=== PATIENT | male | born 1975 | race Two or more races ===

== ENCOUNTER 2019-05-11 10:45 | Emergency (ER) | payer MEDICARE ==
[~2019-05-11] VITALS: Ht 170.2 cm; Wt 81.6 kg
[2019-05-11] MEDS ORDERED: FAMOTIDINE 20 MG/2 ML VIAL IVP ONE (11:30)
[2019-05-11] MEDS ORDERED: ONDANSETRON PF 4 MG/2 ML VIAL. IV ONE (11:30)
--- NOTE | 2019-05-11 11:53 | RAD ---
2 view abdominal series and portable AP upright chest x-ray Clinical indications: Nonstop hiccups. FINDINGS: Mild fecal retention is seen throughout the colon and rectum. No obstructive bowel pattern is seen. No air-fluid levels are seen. No free intraperitoneal air is evident. There is moderate food retention within the stomach. Chest x-ray demonstrates no acute lung infiltrate or pleural effusion or pulmonary edema or pneumothorax or lung mass. The heart size and pulmonary vasculature and mediastinum and both tunde are unremarkable. IMPRESSION: Moderate food retention within the stomach. No other acute abnormality is evident. Electronically signed by: Berto Tripp MD (05/11/2019 11:50 AM) [id number]
[2019-05-11 12:00] LABS: BASO % 1 % (0-3); EOS # 0.1 x10^3/uL (0.0-0.7); EOS % 2 % (0-3); HEMATOCRIT 45.1 % (39.0-53.0); HEMOGLOBIN 15.3 g/dL (13.0-17.5); LYMPH # 1.5 x10^3/uL (1.0-4.8); LYMPH % 23 % (24-48); MEAN CORPUSCULAR HEMOGLOBIN 28 pg (25-35); MEAN CORPUSCULAR HGB CONC 34 g/dL (31-37); MEAN CORPUSCULAR VOLUME 84 fL (79-100); MONO # 0.6 x10^3/uL (0.0-1.1); MONO % 10 % (0-9); NEUT # 4.4 x10^3/uL (1.8-7.7); NEUT % 65 % (31-73); PLATELET COUNT 215 x10^3/uL (140-400); RED BLOOD COUNT 5.38 x10^6/uL (4.30-5.70); RED CELL DISTRIBUTION WIDTH 14.7 % (11.5-14.5); WHITE BLOOD COUNT 6.8 x10^3/uL (4.0-11.0)
[2019-05-11 12:09] LABS: BILIRUBIN,URINE NEGATIVE (NEG); CLARITY,URINE TURBID; COLOR,URINE YELLOW; NITRITE,URINE NEGATIVE (NEG); PH,URINE 7.5; PROTEIN,URINE NEGATIVE (NEG-TRACE)
[2019-05-11 12:12] LABS: CALCIUM 9.4 mg/dL (8.5-10.1); GFR 81.6; POTASSIUM 3.9 mmol/L (3.5-5.1)
[2019-05-11 12:16] LABS: BARBITURATES NEG (NEG); BENZODIAZEPINES NEG (NEG); CANNABINOIDS NEG (NEG); COCAINE NEG (NEG); METHADONE NEG (NEG); OPIATES NEG (NEG); PHENCYCLIDINE NEG (NEG)
[2019-05-11 12:17] LABS: AMORPHOUS SEDIMENT,UR PRESENT /HPF; BACTERIA,URINE 0 /HPF (0-FEW); RBC,URINE 0 /HPF (0-2); WBC,URINE 0 /HPF (0-4)
[2019-05-11 12:18] LABS: ALBUMIN 3.6 g/dL (3.4-5.0); ALBUMIN/GLOBULIN RATIO 1.1 (1.0-1.7); MAGNESIUM 1.8 mg/dL (1.8-2.4); TOTAL BILIRUBIN 0.6 mg/dL (0.2-1.0); TOTAL PROTEIN 6.8 g/dL (6.4-8.2)
[2019-05-11 12:25] LABS: AMPHETAMINE/METHAMPHETAMINE NEG (NEG)
[2019-05-11 12:27] LABS: CREATINE KINASE 68 U/L (39-308)
--- NOTE | 2019-05-11 12:40 | EKG ---
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
[2019-05-11] MEDS ORDERED: CONTRAST GIVEN. MC PRN (12:45)
[2019-05-11] MEDS ORDERED: IOHEXOL 300 MG/ML 100ML VIAL. IV ONE (12:45)
--- NOTE | 2019-05-11 13:15 | RAD ---
Examination: CT ABD PELV W/ IV CONTRST ONLY History: Epigastric pain, vomiting, hiccups Comparison/Correlation: None Findings: Axial images of the abdomen and pelvis were obtained following IV contrast. Sagittal and coronal reformatted images were provided. Motion limits evaluation of the upper abdomen. Visualized lung bases are clear. Circumferential wall thickening of the distal esophagus is noted with suggestion of a small hiatal hernia. Liver is unremarkable. Large quantity of debris is noted within the stomach. Gallbladder is unremarkable. Spleen is unremarkable. Adrenal glands are normal. Kidneys unremarkable. No upper abdominal fluid collections. No inflammatory findings. Appendix is normal. Moderate quantity of stool involving the colon. No bowel obstruction or extraluminal gas. No ascites or pelvic free fluid. Urinary bladder is unremarkable. Vacuum disc space phenomenon involving the lumbar spine noted. Impression: No acute inflammatory process. No obstruction. Small sliding hiatal hernia suspected. Circumferential wall thickening of the distal esophagus which may represent esophagitis is noted. PQRS Compliance Statement: One or more of the following individualized dose reduction techniques were utilized for this examination: 1. Automated exposure control 2. Adjustment of the mA and/or kV according to patient size 3. Use of iterative reconstruction technique Electronically signed by: Reynaldo Holt MD (05/11/2019 1:12 PM) [facility]
[2019-05-11 14:00] VITALS: BP 115/69
[2019-05-11] MEDS ORDERED: OMEP20TA8 PO (14:19)
[2019-05-11] MEDS ORDERED: GABA600T7 PO (14:19)
[2019-05-11] MEDS ORDERED: METO10TA81 PO (14:19)
--- NOTE | 2019-05-11 14:19 | PHYS DOC ---
Past Medical History Past Medical History: GERD, Other Additional Past Medical Histor: CLEFT PALATE, CLUB FOOT Past Surgical History: Other Additional Past Surgical Histo: CLEFT PALATE Alcohol Use: None Drug Use: None Adult General Chief Complaint Chief Complaint: HICCUPS/SINGULTUS HPI HPI Patient is a 43 year old male with no significant medical history who presents to the ED today complaining of hiccups intermittently since Friday which is 6 days ago. Patient states the hiccups are relieved when he drinks Sprite or shai cherelle and eats corn muffins. He states occasionally brings up spit. He states occasionally he gets slight pain on the epigastric region which is worse after he eats certain foods or he is laying down. He states some of the symptoms are relieved sitting up. Review of Systems Review of Systems Constitutional: Denies fever or chills [] Eyes: Denies change in visual acuity, redness, or eye pain [] HENT: Denies nasal congestion or sore throat [] Respiratory: Denies cough or shortness of breath [] Cardiovascular: No additional information not addressed in HPI [] GI: Reports hiccups, epigastric pain, denies bloody stools or diarrhea [] : Denies dysuria or hematuria [] Musculoskeletal: Denies back pain or joint pain [] Integument: Denies rash or skin lesions [] Neurologic: Denies headache, focal weakness or sensory changes [] All other systems were reviewed and found to be within normal limits, except as documented in this note. Current Medications Current Medications Current Medications Medications (Trade) Dose Ordered Sig/Slava Start Time Stop Time Status Last Admin Dose Admin Famotidine (Pepcid Vial) 20 mg 1X ONCE 05/11/19 11:30 05/11/19 11:45 DC 05/11/19 12:03 20 MG Info (CONTRAST GIVEN -- Rx MONITORING) 1 each PRN DAILY PRN 05/11/19 12:45 05/13/19 12:44 Iohexol (Omnipaque 300 Mg/ml) 75 ml 1X ONCE 05/11/19 12:45 05/11/19 12:46 DC 05/11/19 12:51 75 ML Magnesium Citrate (Citroma) 296 ml 1X ONCE 05/11/19 14:15 05/11/19 14:16 UNV Metoclopramide HCl (Reglan Vial) 10 mg 1X ONCE 05/11/19 14:15 05/11/19 14:16 UNV Ondansetron HCl (Zofran) 4 mg 1X ONCE 05/11/19 11:30 05/11/19 11:45 DC 05/11/19 12:03 4 MG Allergies Allergies Allergies Coded Allergies Type Severity Reaction Last Updated Verified No Known Drug Allergies 05/11/19 No Physical Exam Physical Exam Constitutional: Well developed, well nourished, no acute distress, non-toxic bravo earance. [] HENT: Normocephalic, atraumatic, bilateral external ears normal, oropharynx moist, no oral exudates, nose normal. [] Eyes: PERRLA, EOMI, conjunctiva normal, no discharge. [] Neck: Normal range of motion, no tenderness, supple, no stridor. [] Cardiovascular:Heart rate regular rhythm, no murmur [] Lungs & Thorax: Bilateral breath sounds clear to auscultation [] Abdomen: No hiccups noted in the ED. Bowel sounds normal, soft, no tenderness, no masses, no pulsatile masses. [] Skin: Warm, dry, no erythema, no rash. [] Back: No tenderness, no CVA tenderness. [] Extremities: No tenderness, no cyanosis, no clubbing, ROM intact, no edema. [] Neurologic: Alert and oriented X 3, normal motor function, normal sensory function, no focal deficits noted. [] Psychologic: Affect normal, judgement normal, mood normal. [] Current Patient Data Vital Signs Vital Signs Date Time Temp Pulse Resp B/P (MAP) Pulse Ox O2 Delivery O2 Flow Rate FiO2 05/11/19 11:12 98.2 61 16 115/76 (89) 97 Room Air 98.2 Lab Values Laboratory Tests Test 05/11/19 11:45 05/11/19 12:01 White Blood Count 6.8 x10^3/uL (4.0-11.0) Red Blood Count 5.38 x10^6/uL (4.30-5.70) Hemoglobin 15.3 g/dL (13.0-17.5) Hematocrit 45.1 % (39.0-53.0) Mean Corpuscular Volume 84 fL (79-100) Mean Corpuscular Hemoglobin 28 pg (25-35) Mean Corpuscular Hemoglobin Concent 34 g/dL (31-37) Red Cell Distribution Width 14.7 % (11.5-14.5) H Platelet Count 215 x10^3/uL (140-400) Neutrophils (%) (Auto) 65 % (31-73) Lymphocytes (%) (Auto) 23 % (24-48) L Monocytes (%) (Auto) 10 % (0-9) H Eosinophils (%) (Auto) 2 % (0-3) Basophils (%) (Auto) 1 % (0-3) Neutrophils # (Auto) 4.4 x10^3/uL (1.8-7.7) Lymphocytes # (Auto) 1.5 x10^3/uL (1.0-4.8) Monocytes # (Auto) 0.6 x10^3/uL (0.0-1.1) Eosinophils # (Auto) 0.1 x10^3/uL (0.0-0.7) Basophils # (Auto) 0.0 x10^3/uL (0.0-0.2) Sodium Level 143 mmol/L (136-145) Potassium Level 3.9 mmol/L (3.5-5.1) Chloride Level 105 mmol/L (98-107) Carbon Dioxide Level 30 mmol/L (21-32) Anion Gap 8 (6-14) Blood Urea Nitrogen 17 mg/dL (8-26) Creatinine 1.0 mg/dL (0.7-1.3) Estimated GFR (Cockcroft-Gault) 81.6 BUN/Creatinine Ratio 17 (6-20) Glucose Level 97 mg/dL (70-99) Calcium Level 9.4 mg/dL (8.5-10.1) Magnesium Level 1.8 mg/dL (1.8-2.4) Total Bilirubin 0.6 mg/dL (0.2-1.0) Aspartate Amino Transferase (AST) 16 U/L (15-37) Alanine Aminotransferase (ALT) 29 U/L (16-63) Alkaline Phosphatase 79 U/L (46-116) Creatine Kinase 68 U/L (39-308) Creatine Kinase MB (Mass) 0.9 ng/mL (0.0-3.6) Creatine Kinase MB Relative Index % (0-4) Troponin I Quantitative < 0.017 ng/mL (0.000-0.055) XA-Nps-V-Type Natriuretic Peptide 26 pg/mL (0-124) Total Protein 6.8 g/dL (6.4-8.2) Albumin 3.6 g/dL (3.4-5.0) Albumin/Globulin Ratio 1.1 (1.0-1.7) Lipase 198 U/L (73-393) Urine Collection Type Unknown Urine Color Yellow Urine Clarity Turbid Urine pH 7.5 Urine Specific [place] 1.020 Urine Protein Negative mg/dL (NEG-TRACE) Urine Glucose (UA) Negative mg/dL (NEG) Urine Ketones (Stick) Negative mg/dL (NEG) Urine Blood Negative (NEG) Urine Nitrite Negative (NEG) Urine Bilirubin Negative (NEG) Urine Urobilinogen Dipstick 1.0 mg/dL (0.2 mg/dL) Urine Leukocyte Esterase Negative (NEG) Urine RBC 0 /HPF (0-2) Urine WBC 0 /HPF (0-4) Urine Amorphous Sediment Present /HPF Urine Bacteria 0 /HPF (0-FEW) Urine Mucus Marked /LPF Urine Opiates Screen Neg (NEG) Urine Methadone Screen Neg (NEG) Urine Barbiturates Neg (NEG) Urine Phencyclidine Screen Neg (NEG) Urine Amphetamine/Methamphetamine Neg (NEG) Urine Benzodiazepines Screen Neg (NEG) Urine Cocaine Screen Neg (NEG) Urine Cannabinoids Screen Neg (NEG) Urine Ethyl Alcohol Neg (NEG) Laboratory Tests 05/11/19 11:45 Laboratory Tests 05/11/19 11:45 EKG EKG [address] Ferrari sinus rhythm HR 60 no STEMI[] Radiology/Procedures Radiology/Procedures []PROCEDURE: ACUTE ABDOMEN SERIES 2 view abdominal series and portable AP upright chest x-ray Clinical indications: Nonstop hiccups. FINDINGS: Mild fecal retention is seen throughout the colon and rectum. No obstructive bowel pattern is seen. No air-fluid levels are seen. No free intraperitoneal air is evident. There is moderate food retention within the stomach. Chest x-ray demonstrates no acute lung infiltrate or pleural effusion or pulmonary edema or pneumothorax or lung mass. The heart size and pulmonary vasculature and mediastinum and both tunde are unremarkable. IMPRESSION: Moderate food retention within the stomach. No other acute abnormality is evident. Electronically signed by: Rosendo Tripp MD (05/11/2019 11:50 AM) [id number] DICTATED and SIGNED BY: ROSENDO TRIPP MD DATE: 05/11/19 1150 PROCEDURE: CT ABD PELV W/ IV CONTRST ONLY Examination: CT ABD PELV W/ IV CONTRST ONLY History: Epigastric pain, vomiting, hiccups Comparison/Correlation: None Findings: Axial images of the abdomen and pelvis were obtained following IV contrast. Sagittal and coronal reformatted images were provided. Motion limits evaluation of the upper abdomen. Visualized lung bases are clear. Circumferential wall thickening of the distal esophagus is noted with suggestion of a small hiatal hernia. Liver is unremarkable. Large quantity of debris is noted within the stomach. Gallbladder is unremarkable. Spleen is unremarkable. Adrenal glands are normal. Kidneys unremarkable. No upper abdominal fluid collections. No inflammatory findings. Appendix is normal. Moderate quantity of stool involving the colon. No bowel obstruction or extraluminal gas. No ascites or pelvic free fluid. Urinary bladder is unremarkable. Vacuum disc space phenomenon involving the lumbar spine noted. Impression: No acute inflammatory process. No obstruction. Small sliding hiatal hernia suspected. Circumferential wall thickening of the distal esophagus which may represent esophagitis is noted. PQRS Compliance Statement: One or more of the following individualized dose reduction techniques were utilized for this examination: 1. Automated exposure control 2. Adjustment of the mA and/or kV according to patient size 3. Use of iterative reconstruction technique Electronically signed by: Reynaldo Sanchez MD (05/11/2019 1:12 PM) [facility] DICTATED and SIGNED BY: REYNALDO SANCHEZ MD DATE: 05/11/19 1312 Course & Med Decision Making Course & Med Decision Making Pertinent Labs and Imaging studies reviewed. (See chart for details) This is a 43-year-old male patient who presents to the ED today complaining of hiccups with slight epigastric abdominal pain and spitting for 6 days intermittently. Patient's CBC, CMP, lipase, UA, drug screen, troponin and EKG are negative. Acute abdominal series was done which was noted for moderate amount of food in patient's abdomen. CT of the abdomen and pelvis was noted for esophagitis and constipation. Patient was given famotidine in the ED Zofran and Reglan. Patient's hiccups appear to be triggered by acid reflex. He started having hiccups in the ED, I offered him admission he refused. Patient was discharged on a proton pump inhibitor, discharged with Reglan and gabapentin. Follow-up with GI in the course of this week. We talked about acid reflex management remedies specifically diet and proton pump inhibitors. Dragon Disclaimer Dragon Disclaimer This electronic medical record was generated, in whole or in part, using a voice recognition dictation system. Departure Departure Impression: Primary Impression: Esophagitis, acute Disposition: 01 HOME, SELF-CARE Condition: STABLE Referrals: UNKNOWN PCP NAME (PCP) FRANCISCA STEVENS MD follow up as soon as you can Patient Instructions: Diet for Gastroesophageal Reflux Disease, Adult Additional Instructions: You were evaluated in the emergency room and noted to have hiccups triggered by acid reflex, you are also constipated. We put you on medications, take them as prescribed. Avoid eating greasy, fatty, acidic foods, avoid heating heavy meals. Take the prescribed medications as ordered. Follow up with the GI doctor calixto aaron as soon as you can. Scripts Gabapentin (GABAPENTIN) 600 Mg Tablet 600 MG PO TID for NEUROGENIC PAIN, #30 TAB Prov: ALMA SHINE APRN 05/11/19 Metoclopramide Hcl (REGLAN) 10 Mg Tablet 1 TAB PO TID PRN for NAUSEA, #30 TAB Prov: ALMA SHINE APRN 05/11/19 Omeprazole (OMEPRAZOLE) 20 Mg Tablet. 1 TAB PO DAILY, #30 TAB 0 Refills Prov: ALMA SHINE APRN 05/11/19 ALMA SHINE APRN May 11, 2019 14:19
[2019-05-11] MEDS ORDERED: METOCLOPRAMIDE HCL 10 MG/2 ML VIAL. IV ONE (14:30)
[2019-05-11] MEDS ORDERED: MAGNESIUM CITRATE 296 ML SOLUTION. PO ONE (14:30)
== END 2019-05-11 14:46 | disposition home or self-care (01) ==
LOC: ER 10:45
DX: K20.9 Esophagitis, unspecified (principal)
CPT/HCPCS: 99285; J2405; J2765; J3490; Q9967; 36415; 74022; 74177; 80053; 80307; 81001; 82553; 83690; 83735; 83880; 84484; 85025; 93005; 96374; 96375

== ENCOUNTER 2019-05-11 17:52 | Inpatient (IN) | payer MEDICARE, MEDICAID ==
[~2019-05-11] VITALS: Ht 170.2 cm; Wt 83.9 kg
[~2019-05-11 17:52] MED LIST: GABA600T7 PO; METO10TA81 PO; OMEP20TA8 PO
--- NOTE | 2019-05-11 18:19 | PHYS DOC ---
Past Medical History Past Medical History: GERD, Other Additional Past Medical Histor: CLEFT PALATE, CLUB FOOT Past Surgical History: Other Additional Past Surgical Histo: CLEFT PALATE, ear surgery, bilateral feet surgery Alcohol Use: None Drug Use: None Adult General Chief Complaint Chief Complaint: HICCUPS/SINGULTUS HPI HPI Patient is a 43 year old male with no significant PMHX presents to the ED complaining of hiccups since Friday. States that it has been approximately 6 days. States that he feels better when he drinks sprite and shai cherelle. The patient was seen in the ED earlier today and diagnosed with esophagitis. Admission was recommended but patient refused. States that he gets pain in his epigastric region. Describes the pain as sharp. Rates the pain as 6 out 10. States he had to return to the ED today because the hiccups came back and they are worse then before. Denies chest pain, shortness of breath, lower legs swelling, chills, fever, cough, nausea/vomiting or dizziness. Review of Systems Review of Systems Constitutional: Denies fever or chills [] Eyes: Denies change in visual acuity, redness, or eye pain [] HENT: Denies nasal congestion or sore throat [] Respiratory: Denies cough or shortness of breath [] Cardiovascular: No additional information not addressed in HPI [] GI: Complains of abdominal pain. Denies nausea, vomiting, bloody stools or diarrhea [] : Denies dysuria or hematuria [] Musculoskeletal: Denies back pain or joint pain [] Integument: Denies rash or skin lesions [] Neurologic: Denies headache, focal weakness or sensory changes [] All other systems were reviewed and found to be within normal limits, except as documented in this note. Current Medications Current Medications Current Medications Medications (Trade) Dose Ordered Sig/Slava Start Time Stop Time Status Last Admin Dose Admin Chlorpromazine HCl 25 mg/Dextrose 50 ml @ 100 mls/hr PRN Q6HRS PRN 05/11/19 18:30 05/11/19 19:07 100 MLS/HR Allergies Allergies Allergies Coded Allergies Type Severity Reaction Last Updated Verified No Known Drug Allergies 05/11/19 No Physical Exam Physical Exam Constitutional: Well developed, well nourished, no acute distress, non-toxic appearance. [] HENT: Normocephalic, atraumatic Eyes: PERRLA, EOMI, conjunctiva normal, no discharge. [] Neck: Normal range of motion, no tenderness, supple, no stridor. [] Cardiovascular:Heart rate regular rhythm, no murmur [] Lungs & Thorax: Bilateral breath sounds clear to auscultation [] Abdomen: Bowel sounds normal, soft, mild epigastric abdominal tenderness, no masses, no pulsatile masses. [] Skin: Warm, dry, no erythema, no rash. [] Back: No tenderness, no CVA tenderness. [] Extremities: No tenderness, no cyanosis, no clubbing, ROM intact, no edema. [] Neurologic: Alert and oriented X 3, normal motor function, normal sensory function, no focal deficits noted. [] Psychologic: Affect normal, judgement normal, mood normal. [] Current Patient Data Vital Signs Vital Signs Date Time Temp Pulse Resp B/P (MAP) Pulse Ox O2 Delivery O2 Flow Rate FiO2 05/11/19 18:07 98.1 77 20 158/66 (96) 99 Room Air 98.1 Lab Values Laboratory Tests Test 05/11/19 18:30 White Blood Count 7.2 x10^3/uL (4.0-11.0) Red Blood Count 5.53 x10^6/uL (4.30-5.70) Hemoglobin 15.6 g/dL (13.0-17.5) Hematocrit 45.4 % (39.0-53.0) Mean Corpuscular Volume 82 fL (79-100) Mean Corpuscular Hemoglobin 28 pg (25-35) Mean Corpuscular Hemoglobin Concent 34 g/dL (31-37) Red Cell Distribution Width 14.7 % (11.5-14.5) H Platelet Count 214 x10^3/uL (140-400) Neutrophils (%) (Auto) 60 % (31-73) Lymphocytes (%) (Auto) 29 % (24-48) Monocytes (%) (Auto) 9 % (0-9) Eosinophils (%) (Auto) 2 % (0-3) Basophils (%) (Auto) 1 % (0-3) Neutrophils # (Auto) 4.3 x10^3/uL (1.8-7.7) Lymphocytes # (Auto) 2.1 x10^3/uL (1.0-4.8) Monocytes # (Auto) 0.7 x10^3/uL (0.0-1.1) Eosinophils # (Auto) 0.1 x10^3/uL (0.0-0.7) Basophils # (Auto) 0.0 x10^3/uL (0.0-0.2) Sodium Level 143 mmol/L (136-145) Potassium Level 3.6 mmol/L (3.5-5.1) Chloride Level 107 mmol/L (98-107) Carbon Dioxide Level 25 mmol/L (21-32) Anion Gap 11 (6-14) Blood Urea Nitrogen 17 mg/dL (8-26) Creatinine 1.1 mg/dL (0.7-1.3) Estimated GFR (Cockcroft-Gault) 73.1 BUN/Creatinine Ratio 15 (6-20) Glucose Level 150 mg/dL (70-99) H Calcium Level 9.4 mg/dL (8.5-10.1) Total Bilirubin 0.4 mg/dL (0.2-1.0) Aspartate Amino Transferase (AST) 22 U/L (15-37) Alanine Aminotransferase (ALT) 33 U/L (16-63) Alkaline Phosphatase 84 U/L (46-116) Total Protein 7.1 g/dL (6.4-8.2) Albumin 3.6 g/dL (3.4-5.0) Albumin/Globulin Ratio 1.0 (1.0-1.7) Laboratory Tests 05/11/19 18:30 Laboratory Tests 05/11/19 18:30 EKG EKG EKG is sinus rhythm at 96 BPM. No STEMI or long QT.[] Radiology/Procedures Radiology/Procedures [] Course & Med Decision Making Course & Med Decision Making Pertinent Labs and Imaging studies reviewed. (See chart for details) []Improved with Thorazine given in ED. No long QT. Will admit for Esophagitis and GI consult due to persistence of symptoms. Discussed case with hospitalist, Dr. Dahl. He agrees to admission and further management of patient. Patient stable for admission. Dragon Disclaimer Dragon Disclaimer This electronic medical record was generated, in whole or in part, using a voice recognition dictation system. Departure Departure Impression: Primary Impression: Esophagitis, acute Additional Impression: Hiccups Disposition: ADMITTED INPATIENT Admitting Physician: OLE Condition: STABLE Referrals: UNKNOWN PCP NAME (PCP) Problem Qualifiers TIRSO KING May 11, 2019 18:18
[2019-05-11 18:42] LABS: BASO % 1 % (0-3); EOS # 0.1 x10^3/uL (0.0-0.7); EOS % 2 % (0-3); HEMATOCRIT 45.4 % (39.0-53.0); HEMOGLOBIN 15.6 g/dL (13.0-17.5); LYMPH # 2.1 x10^3/uL (1.0-4.8); LYMPH % 29 % (24-48); MEAN CORPUSCULAR HEMOGLOBIN 28 pg (25-35); MEAN CORPUSCULAR HGB CONC 34 g/dL (31-37); MEAN CORPUSCULAR VOLUME 82 fL (79-100); MONO # 0.7 x10^3/uL (0.0-1.1); MONO % 9 % (0-9); NEUT # 4.3 x10^3/uL (1.8-7.7); NEUT % 60 % (31-73); PLATELET COUNT 214 x10^3/uL (140-400); RED BLOOD COUNT 5.53 x10^6/uL (4.30-5.70); RED CELL DISTRIBUTION WIDTH 14.7 % (11.5-14.5); WHITE BLOOD COUNT 7.2 x10^3/uL (4.0-11.0)
[2019-05-11 18:52] LABS: CALCIUM 9.4 mg/dL (8.5-10.1); CREATININE 1.1 mg/dL (0.7-1.3); GFR 73.1; POTASSIUM 3.6 mmol/L (3.5-5.1)
[2019-05-11 18:57] LABS: ALBUMIN 3.6 g/dL (3.4-5.0); TOTAL BILIRUBIN 0.4 mg/dL (0.2-1.0); TOTAL PROTEIN 7.1 g/dL (6.4-8.2)
[2019-05-11] MEDS: chlorproMAZINE 25 MG in IV DEXTROSE 5% 50 ML IV PRN (19:07)
[2019-05-11] MEDS ORDERED: PANTOPRAZOLE IV PUSH 40 MG VIAL. IVP ONE (19:15)
[2019-05-11] MEDS ORDERED: MORPHINE SULFATE 2 MG/ML VIAL. IV PRN (19:15)
[2019-05-11] MEDS ORDERED: IV NORMAL SALINE 1000ML BAG 1,000 ML IV ONE (20:00)
[2019-05-11 23:00] VITALS: BP 89/55
[2019-05-12 03:00] VITALS: BP 101/48
[2019-05-12 04:53] LABS: BASO % 1 % (0-3); EOS # 0.2 x10^3/uL (0.0-0.7); EOS % 3 % (0-3); HEMATOCRIT 43.1 % (39.0-53.0); HEMOGLOBIN 14.6 g/dL (13.0-17.5); LYMPH # 2.4 x10^3/uL (1.0-4.8); LYMPH % 39 % (24-48); MEAN CORPUSCULAR HEMOGLOBIN 28 pg (25-35); MEAN CORPUSCULAR HGB CONC 34 g/dL (31-37); MEAN CORPUSCULAR VOLUME 84 fL (79-100); MONO # 0.6 x10^3/uL (0.0-1.1); MONO % 10 % (0-9); NEUT # 2.8 x10^3/uL (1.8-7.7); NEUT % 47 % (31-73); PLATELET COUNT 187 x10^3/uL (140-400); RED BLOOD COUNT 5.14 x10^6/uL (4.30-5.70); RED CELL DISTRIBUTION WIDTH 14.8 % (11.5-14.5)
[2019-05-12 05:31] LABS: ALBUMIN 3.2 g/dL (3.4-5.0); CALCIUM 8.7 mg/dL (8.5-10.1); CREATININE 1.1 mg/dL (0.7-1.3); GFR 73.1; POTASSIUM 3.8 mmol/L (3.5-5.1); TOTAL BILIRUBIN 0.9 mg/dL (0.2-1.0); TOTAL PROTEIN 6.4 g/dL (6.4-8.2)
--- NOTE | 2019-05-12 06:08 | EKG ---
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
[2019-05-12 07:00] VITALS: BP 108/56
[2019-05-12] MEDS: chlorproMAZINE 25 MG in IV DEXTROSE 5% 50 ML IV PRN (08:22)
--- NOTE | 2019-05-12 09:03 | PDOC2 ---
GI CONSULT Reason For Consult: Hiccups, esophagitis HPI: HPI: 43 y/o male to ER twice yesterday - agreed to admission second time. Hiccups x 1 week - no precipitating events. Has vomiting twice - once on Friday ("brown slime") and once just now (I saw - clear phlegm material w/ light brown/reddish tinge). Was able to eat/drink some in between. Laila Marie helped hiccups once at home and Thorazine helped last night in ER - was able to sleep, then hiccups recurred after he woke up and talked to his this morning. Has had some LLQ discomfort - none currently. Stools looked black on Friday and Friday but are now normal in color. Has had heartburn "like fire" - worse than in the past. Tried Tums. No dysphagia, hematochezia, diarrhea, constipation, or weight loss. No previous EGD or colonoscopy. No GB, liver, pancreas, or PUD history. No NSAIDs. On x-ray: moderate food retention in stomach. On CT: possible distal esophagitis, hiatal hernia, large amount of debris in stomach, moderate retained stool, and normal liver and GB. PMH: PMH: cleft palate repair, bilateral foot surgeries, ear surgery FH: Family History: Cancer (father - lung) Social History: Smoke: No ALCOHOL: none Drugs: None ROS: GEN: Denies fevers, chills, sweats HEENT: Denies blurred vision, sore throat CV: Denies chest pain RESP: Denies shortness of air, cough GI: Per HPI : Denies hematuria, dysuria ENDO: Denies weight changes NEURO: Denies confusion, dizziness MSK: Denies weakness, joint pain/swelling SKIN: Denies jaundice, pruritus Vitals: Vitals: Vital Signs Date Time Temp Pulse Resp B/P (MAP) Pulse Ox O2 Delivery O2 Flow Rate FiO2 05/12/19 07:00 98.4 60 18 108/56 (73) 96 Room Air 98.4 Labs: Labs: Laboratory Tests Test 05/11/19 18:30 05/12/19 04:20 White Blood Count 7.2 x10^3/uL (4.0-11.0) 6.0 x10^3/uL (4.0-11.0) Red Blood Count 5.53 x10^6/uL (4.30-5.70) 5.14 x10^6/uL (4.30-5.70) Hemoglobin 15.6 g/dL (13.0-17.5) 14.6 g/dL (13.0-17.5) Hematocrit 45.4 % (39.0-53.0) 43.1 % (39.0-53.0) Mean Corpuscular Volume 82 fL (79-100) 84 fL (79-100) Mean Corpuscular Hemoglobin 28 pg (25-35) 28 pg (25-35) Mean Corpuscular Hemoglobin Concent 34 g/dL (31-37) 34 g/dL (31-37) Red Cell Distribution Width 14.7 % (11.5-14.5) 14.8 % (11.5-14.5) Platelet Count 214 x10^3/uL (140-400) 187 x10^3/uL (140-400) Neutrophils (%) (Auto) 60 % (31-73) 47 % (31-73) Lymphocytes (%) (Auto) 29 % (24-48) 39 % (24-48) Monocytes (%) (Auto) 9 % (0-9) 10 % (0-9) Eosinophils (%) (Auto) 2 % (0-3) 3 % (0-3) Basophils (%) (Auto) 1 % (0-3) 1 % (0-3) Neutrophils # (Auto) 4.3 x10^3/uL (1.8-7.7) 2.8 x10^3/uL (1.8-7.7) Lymphocytes # (Auto) 2.1 x10^3/uL (1.0-4.8) 2.4 x10^3/uL (1.0-4.8) Monocytes # (Auto) 0.7 x10^3/uL (0.0-1.1) 0.6 x10^3/uL (0.0-1.1) Eosinophils # (Auto) 0.1 x10^3/uL (0.0-0.7) 0.2 x10^3/uL (0.0-0.7) Basophils # (Auto) 0.0 x10^3/uL (0.0-0.2) 0.0 x10^3/uL (0.0-0.2) Sodium Level 143 mmol/L (136-145) 145 mmol/L (136-145) Potassium Level 3.6 mmol/L (3.5-5.1) 3.8 mmol/L (3.5-5.1) Chloride Level 107 mmol/L (98-107) 109 mmol/L (98-107) Carbon Dioxide Level 25 mmol/L (21-32) 30 mmol/L (21-32) Anion Gap 11 (6-14) 6 (6-14) Blood Urea Nitrogen 17 mg/dL (8-26) 15 mg/dL (8-26) Creatinine 1.1 mg/dL (0.7-1.3) 1.1 mg/dL (0.7-1.3) Estimated GFR (Cockcroft-Gault) 73.1 73.1 BUN/Creatinine Ratio 15 (6-20) 14 (6-20) Glucose Level 150 mg/dL (70-99) 92 mg/dL (70-99) Calcium Level 9.4 mg/dL (8.5-10.1) 8.7 mg/dL (8.5-10.1) Total Bilirubin 0.4 mg/dL (0.2-1.0) 0.9 mg/dL (0.2-1.0) Aspartate Amino Transf (AST/SGOT) 22 U/L (15-37) 15 U/L (15-37) Alanine Aminotransferase (ALT/SGPT) 33 U/L (16-63) 27 U/L (16-63) Alkaline Phosphatase 84 U/L (46-116) 72 U/L (46-116) Total Protein 7.1 g/dL (6.4-8.2) 6.4 g/dL (6.4-8.2) Albumin 3.6 g/dL (3.4-5.0) 3.2 g/dL (3.4-5.0) Albumin/Globulin Ratio 1.0 (1.0-1.7) 1.0 (1.0-1.7) Allergies: Coded Allergies: No Known Drug Allergies (Unverified , 05/11/19) Medications: Current Medications Medications (Trade) Dose Ordered Sig/Slava Route PRN Reason Start Time Stop Time Status Last Admin Dose Admin Chlorpromazine HCl 25 mg/Dextrose 50 ml @ 100 mls/hr PRN Q6HRS PRN IV HICCUPS 05/11/19 18:30 05/12/19 08:22 Pantoprazole Sodium (PROTONIX VIAL for IV PUSH) 40 mg 1X ONCE IVP 05/11/19 19:15 05/11/19 19:16 DC 05/11/19 19:43 Sodium Chloride 1,000 ml @ 1,000 mls/hr 1X ONCE IV 05/11/19 20:00 05/11/19 20:59 DC 05/11/19 19:54 Imaging: Imaging: AAS 05/11 IMPRESSION: Moderate food retention within the stomach. No other acute abnormality is evident. CT A/P 05/11 Visualized lung bases are clear. Circumferential wall thickening of the distal esophagus is noted with suggestion of a small hiatal hernia. Liver is unremarkable. Large quantity of debris is noted within the stomach. Gallbladder is unremarkable. Spleen is unremarkable. Adrenal glands are normal. Kidneys unremarkable. No upper abdominal fluid collections. No inflammatory findings. Appendix is normal. Moderate quantity of stool involving the colon. No bowel obstruction or extraluminal gas. No ascites or pelvic free fluid. Urinary bladder is unremarkable. Vacuum disc space phenomenon involving the lumbar spine noted. Impression: No acute inflammatory process. No obstruction. Small sliding hiatal hernia suspected. Circumferential wall thickening of the distal esophagus which may represent esophagitis is noted. PE: GEN: hiccuping HEENT: Atraumatic, PERRL LUNGS: room air, clear anteriorly HEART: RRR ABD: NABS, S/ND/NT EXTREMITY: No edema SKIN: No rashes, no jaundice NEURO/PSYCH: A & O �3 A/P: A/P: Hiccups, vomiting Heartburn Abnormal abdominal imaging - debris in stomach, esophagitis, moderate amount of stool CRC screen - average risk -- Continue PPI for heartburn. Would benefit from EGD at some point - will review timing (inpt vs outpt) w/ Dr. Swanson and additional GI recs. SALVATORE CHIU May 12, 2019 09:03
[2019-05-12] MEDS: PANTOPRAZOLE IV PUSH 40 MG VIAL. IVP SCH (10:29)
[2019-05-12 10:54] VITALS: BP 121/61
--- NOTE | 2019-05-12 13:30 | SSS ---
ADMIT DATE: CHIEF COMPLAINT: Hiccups. HISTORY OF PRESENT ILLNESS: The patient is a pleasant 43-year-old relatively healthy male who presented with hiccups. I think he came to the ER twice yesterday, they went ahead and admitted him and now I am seeing him on the telemetry floor where he is doing better and he wants to go home. PAST MEDICAL HISTORY: Cleft palate, bilateral foot surgeries, ear surgery. ALLERGIES: None. FAMILY HISTORY: Hypertension. SOCIAL HISTORY: Does not drink, smoke or take drugs. MEDICATIONS: Reviewed, please refer to the MRAD. REVIEW OF SYSTEMS: GENERAL: No history of weight change, weakness or fevers. SKIN: No bruising, hair changes or rashes. EYES: No blurred, double or loss of vision. NOSE AND THROAT: No history of nosebleeds, hoarseness or sore throat. HEART: No history of palpitations, chest pain or shortness of breath on exertion. LUNGS: Denies cough, hemoptysis, wheezing or shortness of breath. GASTROINTESTINAL: Denies changes in appetite, nausea, vomiting, diarrhea or constipation. GENITOURINARY: No history of frequency, urgency, hesitancy or nocturia. NEUROLOGIC: Denies history of numbness, tingling, tremor or weakness. PSYCHIATRIC: No history of panic, anxiety or depression. ENDOCRINE: No history of heat or cold intolerance, polyuria or polydipsia. EXTREMITIES: Denies muscle weakness, joint pain, pain on walking or stiffness. PHYSICAL EXAMINATION: VITALS: Within normal limits and are stable. GENERAL: No apparent distress. Alert and oriented. HEENT: Head is normocephalic, atraumatic, pupils were equally round and reactive to light and accommodation. NECK: Supple, no JVD, no thyromegaly was noted. LUNGS: Clear to auscultation in all lung [place] without rhonchi or wheezing. HEART: RRR, S1, S2 present. Peripheral pulses intact, no obvious murmurs were noted. ABDOMEN: Soft, nontender. Positive bowel sounds no organomegaly, normal bowel sounds. EXTREMITIES: Without any cyanosis, clubbing, or edema. Pedal pulses intact, Homans sign is negative. NEUROLOGIC: Normal speech, normal tone. A and O x3, moves all extremities, no obvious focal deficits. PSYCHIATRIC: Normal affect, normal mood. Stable. SKIN: No ulcerations or rashes, good skin turgor, no jaundice. VASCULAR: Good capillary refill, neurovascular bundle appears to be intact. LABORATORY DATA: Hematology is normal. Electrolytes are normal. ASSESSMENT AND PLAN: Resolving hiccups. We will go ahead and discharge. It should be noted that the patient did see GI before he left. DISPOSITION: Home. ACTIVITY: As tolerated. DIET: Low sodium. MEDICATIONS: Please see the MRAD. We told him to get some [id number] Prilosec. TOTAL TIME: 32 minutes. RUBY REDMOND DO DR: MARIAN/simba JOB#: [id number] / [id number]
[2019-05-12] MEDS: chlorproMAZINE 12.5 MG in IV DEXTROSE 5% 50 ML IV PRN ×2 (14:08→22:41)
[2019-05-12] MEDS ORDERED: ONDANSETRON PF 4 MG/2 ML VIAL. IV PRN (14:30)
[2019-05-12 15:00] VITALS: BP 109/54
[2019-05-12 23:33] VITALS: BP 106/50
[2019-05-13 03:10] VITALS: BP_SYST 103; BP_SYST 87; BP_DIAS 56; BP_DIAS 62
[2019-05-13 07:00] VITALS: BP 98/52
[2019-05-13] MEDS ORDERED: IV RINGERS,LACTATED 1000ML 1,000 ML IV SCH (08:27)
[2019-05-13] MEDS: PANTOPRAZOLE IV PUSH 40 MG VIAL. IVP SCH (09:05)
--- NOTE | 2019-05-13 09:33 | PDOC ---
PROGRESS NOTES History of Present Illness History of Present Illness ASSESSMENT AND PLAN: Resolving hiccups. Heartburn Abnormal abdominal imaging - debris in stomach, esophagitis, moderate amount of stool 28 min pt exam, chart review, > 50% of time spent with exam, chart review, pt care coordination Vitals Vitals Vital Signs Date Time Temp Pulse Resp B/P (MAP) Pulse Ox O2 Delivery O2 Flow Rate FiO2 05/13/19 07:00 98.2 63 14 98/52 (67) 96 Room Air 98.2 05/13/19 03:10 Physical Exam General: Alert, Oriented X3, Cooperative, No acute distress Heart: Regular rate, Normal S1 Lungs: Clear Abdomen: Soft, No hepatosplenomegaly Extremities: No cyanosis Labs LABS Examination: CT ABD PELV W/ IV CONTRST ONLY History: Epigastric pain, vomiting, hiccups Comparison/Correlation: None Findings: Axial images of the abdomen and pelvis were obtained following IV contrast. Sagittal and coronal reformatted images were provided. Motion limits evaluation of the upper abdomen. Visualized lung bases are clear. Circumferential wall thickening of the distal esophagus is noted with suggestion of a small hiatal hernia. Liver is unremarkable. Large quantity of debris is noted within the stomach. Gallbladder is unremarkable. Spleen is unremarkable. Adrenal glands are normal. Kidneys unremarkable. No upper abdominal fluid collections. No inflammatory findings. Appendix is normal. Moderate quantity of stool involving the colon. No bowel obstruction or extraluminal gas. No ascites or pelvic free fluid. Urinary bladder is unremarkable. Vacuum disc space phenomenon involving the lumbar spine noted. Impression: No acute inflammatory process. No obstruction. Small sliding hiatal hernia suspected. Circumferential wall thickening of the distal esophagus which may represent esophagitis is noted. PQRS Compliance Statement: One or more of the following individualized dose reduction techniques were utilized for this examination: 1. Automated exposure control 2. Adjustment of the mA and/or kV according to patient size 3. Use of iterative reconstruction technique Assessment and Plan Assessmemt and Plan Problems Medical Problems: (1) Esophagitis, acute Status: Acute Comment Review of Relevant I have reviewed the following items elsy (where applicable) has been applied. Labs Laboratory Tests Test 05/11/19 18:30 05/12/19 04:20 White Blood Count 7.2 x10^3/uL (4.0-11.0) 6.0 x10^3/uL (4.0-11.0) Red Blood Count 5.53 x10^6/uL (4.30-5.70) 5.14 x10^6/uL (4.30-5.70) Hemoglobin 15.6 g/dL (13.0-17.5) 14.6 g/dL (13.0-17.5) Hematocrit 45.4 % (39.0-53.0) 43.1 % (39.0-53.0) Mean Corpuscular Volume 82 fL (79-100) 84 fL (79-100) Mean Corpuscular Hemoglobin 28 pg (25-35) 28 pg (25-35) Mean Corpuscular Hemoglobin Concent 34 g/dL (31-37) 34 g/dL (31-37) Red Cell Distribution Width 14.7 % (11.5-14.5) 14.8 % (11.5-14.5) Platelet Count 214 x10^3/uL (140-400) 187 x10^3/uL (140-400) Neutrophils (%) (Auto) 60 % (31-73) 47 % (31-73) Lymphocytes (%) (Auto) 29 % (24-48) 39 % (24-48) Monocytes (%) (Auto) 9 % (0-9) 10 % (0-9) Eosinophils (%) (Auto) 2 % (0-3) 3 % (0-3) Basophils (%) (Auto) 1 % (0-3) 1 % (0-3) Neutrophils # (Auto) 4.3 x10^3/uL (1.8-7.7) 2.8 x10^3/uL (1.8-7.7) Lymphocytes # (Auto) 2.1 x10^3/uL (1.0-4.8) 2.4 x10^3/uL (1.0-4.8) Monocytes # (Auto) 0.7 x10^3/uL (0.0-1.1) 0.6 x10^3/uL (0.0-1.1) Eosinophils # (Auto) 0.1 x10^3/uL (0.0-0.7) 0.2 x10^3/uL (0.0-0.7) Basophils # (Auto) 0.0 x10^3/uL (0.0-0.2) 0.0 x10^3/uL (0.0-0.2) Sodium Level 143 mmol/L (136-145) 145 mmol/L (136-145) Potassium Level 3.6 mmol/L (3.5-5.1) 3.8 mmol/L (3.5-5.1) Chloride Level 107 mmol/L (98-107) 109 mmol/L (98-107) Carbon Dioxide Level 25 mmol/L (21-32) 30 mmol/L (21-32) Anion Gap 11 (6-14) 6 (6-14) Blood Urea Nitrogen 17 mg/dL (8-26) 15 mg/dL (8-26) Creatinine 1.1 mg/dL (0.7-1.3) 1.1 mg/dL (0.7-1.3) Estimated GFR (Cockcroft-Gault) 73.1 73.1 BUN/Creatinine Ratio 15 (6-20) 14 (6-20) Glucose Level 150 mg/dL (70-99) 92 mg/dL (70-99) Calcium Level 9.4 mg/dL (8.5-10.1) 8.7 mg/dL (8.5-10.1) Total Bilirubin 0.4 mg/dL (0.2-1.0) 0.9 mg/dL (0.2-1.0) Aspartate Amino Transf (AST/SGOT) 22 U/L (15-37) 15 U/L (15-37) Alanine Aminotransferase (ALT/SGPT) 33 U/L (16-63) 27 U/L (16-63) Alkaline Phosphatase 84 U/L (46-116) 72 U/L (46-116) Total Protein 7.1 g/dL (6.4-8.2) 6.4 g/dL (6.4-8.2) Albumin 3.6 g/dL (3.4-5.0) 3.2 g/dL (3.4-5.0) Albumin/Globulin Ratio 1.0 (1.0-1.7) 1.0 (1.0-1.7) Medications Current Medications Chlorpromazine HCl 25 mg/Dextrose 50 ml @ 100 mls/hr PRN Q6HRS PRN IV HICCUPS Last administered on 05/12/19 08:22; Start 05/11/19 at 18:30; Stop 05/12/19 at 09:31; Status DC Pantoprazole Sodium (PROTONIX VIAL for IV PUSH) 40 mg 1X ONCE IVP Last administered on 05/11/19at 19:43; Start 05/11/19 at 19:15; Stop 05/11/19 at 19:16; Status DC Morphine Sulfate (Morphine Sulfate) 2 mg PRN Q2HR PRN IV PAIN; Start 05/11/19 at 19:15; Stop 05/12/19 at 19:14; Status DC Sodium Chloride 1,000 ml @ 1,000 mls/hr 1X ONCE IV Last administered on 05/11/19at 19:54; Start 05/11/19 at 20:00; Stop 05/11/19 at 20:59; Status DC Pantoprazole Sodium (PROTONIX VIAL for IV PUSH) 40 mg DAILYAC IVP Last administered on 05/13/19at 09:05; Start 05/12/19 at 09:30 Chlorpromazine HCl 12.5 mg/ Dextrose 50.5 ml @ 100 mls/hr PRN Q6HRS PRN IV HICCUPS Last administered on 05/12/19at 22:41; Start 05/12/19 at 09:30 Ondansetron HCl (Zofran) 4 mg PRN Q6HRS PRN IV NAUSEA/VOMITING Last administered on 05/12/19at 14:32; Start 05/12/19 at 14:30 Ringer's Solution 1,000 ml @ 50 mls/hr Q20H IV ; Start 05/13/19 at 08:27; Stop 05/13/19 at 20:26 Active Scripts Active Vitals/I & O Vital Sign - Last 24 Hours 05/12/19 05/12/19 05/12/19 05/12/19 10:54 15:00 19:16 20:25 Temp 98.1 98.1 98.1 98.1 Pulse 63 60 Resp 18 16 B/P (MAP) 121/61 (81) 109/54 (72) Pulse Ox 98 98 O2 Delivery Room Air Room Air Room Air Room Air 05/12/19 05/13/19 05/13/19 23:33 03:10 07:00 Temp 98.1 98.1 98.2 98.1 98.1 98.2 Pulse 60 62 63 Resp 18 18 14 B/P (MAP) 106/50 (68) 103/62 (76) 98/52 (67) Pulse Ox 97 96 96 O2 Delivery Room Air Room Air Room Air O2 Flow Rate Intake and Output 05/12/19 05/12/19 05/13/19 15:00 23:00 07:00 Intake Total 240 ml 700 ml 160 ml Output Total 0 ml Balance 240 ml 700 ml 160 ml DAVE CORRAL MD May 13, 2019 09:33
[2019-05-13 11:00] VITALS: BP 109/56
[2019-05-13] MEDS ORDERED: LIDOCAINE 2% PF 5 ML VIAL. ONE (14:54)
[2019-05-13] MEDS ORDERED: PROPOFOL 40 ML IV ONE (14:54)
[2019-05-13 15:00] VITALS: BP 115/73
--- NOTE | 2019-05-13 15:04 | PDOC4 ---
Operative Note Operative Note EGD with biopsies Meds propofol per anesthesia Pre-op dx abnl Ct scan/GERD Post-op dx reflux esophagitis s/p bx hiatal hernia Plan advance diet PPI therapy/phenothiazines for hiccups Release when tolerating po FRANCISCA STEVENS MD May 13, 2019 15:04
[2019-05-13] MEDS ORDERED: PANTOPRAZOLE 40 MG TABLET.DR. PO ONE (17:30)
[2019-05-13] MEDS: chlorproMAZINE 12.5 MG in IV DEXTROSE 5% 50 ML IV PRN (17:31)
--- NOTE | 2019-05-13 18:35 | PDOC3 ---
Discharge Summary Date of Admission: May 11, 2019 Date of Discharge: May 13, 2019 Follow-Up: 3-5 days Admitting Diagnosis comment: ASSESSMENT AND PLAN: Resolving hiccups. Heartburn Abnormal abdominal imaging - debris in stomach, esophagitis, moderate amount of stool Operative Note Operative Note Operative Note EGD with biopsies Meds propofol per anesthesia Pre-op dx abnl Ct scan/GERD Post-op dx reflux esophagitis s/p bx hiatal hernia Plan advance diet PPI therapy/phenothiazines for hiccups Release when tolerating po 28 min pt exam, chart review D/C PLANNING , > 50% of time spent with exam, chart review, pt care coordination Vitals Vitals Vital Signs Date Time Temp Pulse Resp B/P (MAP) Pulse Ox O2 Delivery O2 Flow Rate FiO2 05/13/19 07:00 98.2 63 14 98/52 (67) 96 Room Air 98.2 05/13/19 03:10 Physical Exam General: Alert, Oriented X3, Cooperative, No acute distress Heart: Regular rate, Normal S1 Lungs: Clear Abdomen: Soft, No hepatosplenomegaly Extremities: No cyanosis Labs LABS Examination: CT ABD PELV W/ IV CONTRAST ONLY History: Epigastric pain, vomiting, hiccups Comparison/Correlation: None Findings: Axial images of the abdomen and pelvis were obtained following IV contrast. Sagittal and coronal reformatted images were provided. Motion limits evaluation of the upper abdomen. Visualized lung bases are clear. Circumferential wall thickening of the distal esophagus is noted with suggestion of a small hiatal hernia. Liver is unremarkable. Large quantity of debris is noted within the stomach. Gallbladder is unremarkable. Spleen is unremarkable. Adrenal glands are normal. Kidneys unremarkable. No upper abdominal fluid collections. No inflammatory findings. Appendix is normal. Moderate quantity of stool involving the colon. No bowel obstruction or extraluminal gas. No ascites or pelvic free fluid. Urinary bladder is unremarkable. Vacuum disc space phenomenon involving the lumbar spine noted. Impression: No acute inflammatory process. No obstruction. Small sliding hiatal hernia suspected. Circumferential wall thickening of the distal esophagus which may represent esophagitis is noted. PQRS Compliance Statement: One or more of the following individualized dose reduction techniques were utilized for this examination: 1. Automated exposure control 2. Adjustment of the mA and/or kV according to patient size 3. Use of iterative reconstruction technique FINAL DIAGNOSIS Problems Medical Problems: (1) Esophagitis, acute Status: Acute Brief Hospital Course Mr. Ordoñez is a 43 old [sex] who presented with [GERD ] CONDITION AT DISCHARGE: Improved Discharge Medications Current Medications Chlorpromazine HCl 25 mg/Dextrose 50 ml @ 100 mls/hr PRN Q6HRS PRN IV HICCUPS Last administered on 05/12/19at 08:22; Start 05/11/19 at 18:30; Stop 05/12/19 at 09:31; Status DC Pantoprazole Sodium (PROTONIX VIAL for IV PUSH) 40 mg 1X ONCE IVP Last administered on 05/11/19at 19:43; Start 05/11/19 at 19:15; Stop 05/11/19 at 19:16; Status DC Morphine Sulfate (Morphine Sulfate) 2 mg PRN Q2HR PRN IV PAIN; Start 05/11/19 at 19:15; Stop 05/12/19 at 19:14; Status DC Sodium Chloride 1,000 ml @ 1,000 mls/hr 1X ONCE IV Last administered on 05/11/19at 19:54; Start 05/11/19 at 20:00; Stop 05/11/19 at 20:59; Status DC Pantoprazole Sodium (PROTONIX VIAL for IV PUSH) 40 mg DAILYAC IVP Last administered on 05/13/19at 09:05; Start 05/12/19 at 09:30; Stop 05/13/19 at 15:42; Status DC Chlorpromazine HCl 12.5 mg/ Dextrose 50.5 ml @ 100 mls/hr PRN Q6HRS PRN IV HICCUPS Last administered on 05/13/19at 17:31; Start 05/12/19 at 09:30 Ondansetron HCl (Zofran) 4 mg PRN Q6HRS PRN IV NAUSEA/VOMITING Last administered on 05/12/19at 14:32; Start 05/12/19 at 14:30 Ringer's Solution 1,000 ml @ 50 mls/hr Q20H IV Last administered on 05/13/19at 13:32; Start 05/13/19 at 08:27; Stop 05/13/19 at 20:26 Propofol 40 ml @ As Directed STK-MED ONCE IV ; Start 05/13/19 at 14:54; Stop 05/13/19 at 14:54; Status DC Lidocaine HCl (Lidocaine Pf 2% Vial) 5 ml STK-MED ONCE .ROUTE ; Start 05/13/19 at 14:54; Stop 05/13/19 at 14:54; Status DC Pantoprazole Sodium (Protonix) 40 mg DAILYAC PO ; Start 05/14/19 at 07:30 Pantoprazole Sodium (Protonix) 40 mg 1X ONCE PO Last administered on 05/13/19at 17:30; Start 05/13/19 at 17:30; Stop 05/13/19 at 17:31; Status DC Active Scripts Active Vital Signs Vital Signs Date Time Temp Pulse Resp B/P (MAP) Pulse Ox O2 Delivery O2 Flow Rate FiO2 05/13/19 15:18 53 18 108/58 97 Room Air 05/13/19 15:03 97.3 2 97.3 Labs Laboratory Tests Test 05/12/19 04:20 White Blood Count 6.0 x10^3/uL (4.0-11.0) Red Blood Count 5.14 x10^6/uL (4.30-5.70) Hemoglobin 14.6 g/dL (13.0-17.5) Hematocrit 43.1 % (39.0-53.0) Mean Corpuscular Volume 84 fL (79-100) Mean Corpuscular Hemoglobin 28 pg (25-35) Mean Corpuscular Hemoglobin Concent 34 g/dL (31-37) Red Cell Distribution Width 14.8 % (11.5-14.5) Platelet Count 187 x10^3/uL (140-400) Neutrophils (%) (Auto) 47 % (31-73) Lymphocytes (%) (Auto) 39 % (24-48) Monocytes (%) (Auto) 10 % (0-9) Eosinophils (%) (Auto) 3 % (0-3) Basophils (%) (Auto) 1 % (0-3) Neutrophils # (Auto) 2.8 x10^3/uL (1.8-7.7) Lymphocytes # (Auto) 2.4 x10^3/uL (1.0-4.8) Monocytes # (Auto) 0.6 x10^3/uL (0.0-1.1) Eosinophils # (Auto) 0.2 x10^3/uL (0.0-0.7) Basophils # (Auto) 0.0 x10^3/uL (0.0-0.2) Sodium Level 145 mmol/L (136-145) Potassium Level 3.8 mmol/L (3.5-5.1) Chloride Level 109 mmol/L (98-107) Carbon Dioxide Level 30 mmol/L (21-32) Anion Gap 6 (6-14) Blood Urea Nitrogen 15 mg/dL (8-26) Creatinine 1.1 mg/dL (0.7-1.3) Estimated GFR (Cockcroft-Gault) 73.1 BUN/Creatinine Ratio 14 (6-20) Glucose Level 92 mg/dL (70-99) Calcium Level 8.7 mg/dL (8.5-10.1) Total Bilirubin 0.9 mg/dL (0.2-1.0) Aspartate Amino Transf (AST/SGOT) 15 U/L (15-37) Alanine Aminotransferase (ALT/SGPT) 27 U/L (16-63) Alkaline Phosphatase 72 U/L (46-116) Total Protein 6.4 g/dL (6.4-8.2) Albumin 3.2 g/dL (3.4-5.0) Albumin/Globulin Ratio 1.0 (1.0-1.7) Allergies Allergies Coded Allergies Type Severity Reaction Last Updated Verified No Known Drug Allergies 05/13/19 No Disposition/Orders: D/C to Home Patient Instructions D/C PLANNING 28 MIN DAVE CORRAL MD May 13, 2019 18:35
[2019-05-13] MEDS ORDERED: PANT40TA77 PO (18:37)
--- NOTE | 2019-05-13 18:39 | DISCH ---
DISCHARGE INSTRUCTIONS Condition on Discharge Condition on Discharge: Stable Activity After Discharge Activity Instructions for Disc: Activity as tolerated Lifting Instructions after Dis: No heavy lifting, No pulling or pushing Weight Bearing Status after Di: As tolerated Diet after Discharge Diet after Discharge: Cardiac Checks after Discharge Checks after discharge: Check blood press - daily Contacting the DR. after DC Call your doctor for: If your condition worsens DAVE CORRAL MD May 13, 2019 18:39
[2019-05-13 19:10] VITALS: BP 108/64
[2019-05-14] MEDS ORDERED: PANTOPRAZOLE 40 MG TABLET.DR. PO SCH (07:30)
--- NOTE | 2019-05-17 15:07 | PATHOLOGY ---
[facility] Accession Number: [id number] . 01 Material submitted: . esophagus - DISTAL ESOPHAGUS BIOPSY. Modifiers: distal . 01 Clinical history: . Abnormal CT/hiccups . 02 Diagnosis: Esophageal biopsies, distal esophagus: - Segments of hyperplastic squamous esophageal mucosa and segment of gastric mucosa showing chronic inflammation, consistent with reflux esophagitis. (JPM:manager civil; 05/17/2019) R 05/17/2019 1034 Local . 02 Comment: Sections of the distal esophageal biopsy reveals several segments of tangentially oriented hyperplastic squamous esophageal mucosa and a single segment of gastric mucosa showing moderate chronic inflammation. The findings are consistent with reflux esophagitis. There is no evidence of Rendon's change, dysplasia, or malignancy. (JPM:manager civil; 05/17/2019) . 02 Electronically signed: . Jonah Mayo MD, Pathologist NPI- [id number] . 01 Gross description: . Received in formalin labeled "Ordoñez, Arnulfo, distal esophagus," are 4 segments of aceves soft tissue measuring 1.1 x 0.8 x 0.2 cm in aggregate dimensions and ranging from 0.2 to 0.6 cm in maximum dimension. The specimen is submitted entirely in cassette A1. (TSD; 05/14/2019) TOB/TOB 05/14/2019 1725 Local . 02 Pathologist provided ICD-10: K21.0 . 02 CPT . 576583 Specimen Comment: A courtesy copy of this report has been sent to Specimen Comment: [phone], , . Specimen Comment: Report sent to ,DR AJ / DR KING Performed at: [address] [place] [address] [facility] [address], [place], [place] [id number] MD Forrest Evans MD Phone: [phone] Performed at: [address] [id number] MD Jonah Mayo MD Phone: [phone]
== END 2019-05-13 21:31 | disposition home or self-care (01) | DRG 392 ==
LOC: ER 17:52 → 2 SOUTH 19:07 → 6 SOUTH 05-12 13:29 → OBSVTOIN 05-13 09:05
PROVIDERS: ADMIT Internal Medicine; ATTEND Internal Medicine
PROC: 0DB58ZX Excision of Esophagus, Via Natural or Artificial Opening Endoscopic, Diagnostic (ICD-10-PCS; principal; 2019-05-13 14:30)
DX: K21.0 Gastro-esophageal reflux disease with esophagitis (principal); K44.9 Diaphragmatic hernia without obstruction or gangrene; Z87.730 Personal history of (corrected) cleft lip and palate; Q66.89 Other specified congenital deformities of feet; Z82.49 Family history of ischemic heart disease and other diseases of the circulatory system; Z80.9 Family history of malignant neoplasm, unspecified
CPT/HCPCS: 36415; 43239; 74022; 74177; 80053; 80307; 81001; 82553; 83690; 83735; 83880; 84484; 85025; 93005; C9113; G0378; G0379; J2001; J2405; J2704; J3230; J7030; J7120